=== PATIENT | female | born 1935 | race Caucasian/White ===

== ENCOUNTER 2017-11-19 17:10 | Inpatient (IN) | payer OTHER, MEDICAID ==
[~2017-11-19] VITALS: Ht 152.4 cm; Wt 61.0 kg
[2017-11-19 18:07] LABS: BASOPHIL % 0.8 % (0-2); PLATELET COUNT 281 x10^3mcL (130-400); RED CELL DISTRIBUTION WIDTH 13.4 % (11.5-14.5)
[2017-11-19 18:25] LABS: CALCIUM 9.8 mg/dL (8.5-10.1); CARBON DIOXIDE 21.2 mmol/L (21-32); CHLORIDE SERUM 107 mmol/L (98-107); CREATININE SERUM 1.8 mg/dL (0.6-1.0); GLUCOSE SERUM 108 mg/dL (74-106); POTASSIUM SERUM 3.6 mmol/L (3.5-5.1); SODIUM SERUM 142 mmol/L (136-145)
[2017-11-19 18:26] LABS: microscopic required? YES; urine erythrocyte 1+ (NEGATIVE)
[2017-11-19 18:38] LABS: ALKALINE PHOSPHATASE 50 U/L (46-116); ALT/SGPT 13 U/L (14-59); AST/SGOT 13 U/L (15-37); BILIRUBIN TOTAL 0.31 mg/dL (0.20-1.00); T4(THYROXINE) 7.2 ug/dL (4.7-13.3); TOTAL PROTEIN, SERUM 7.1 g/dL (6.4-8.2)
[2017-11-19 18:39] LABS: ALBUMIN 3.3 g/dL (3.4-5.0)
[2017-11-19 21:35] VITALS: BP 138/54
[2017-11-19 21:39] LABS: CHOLESTEROL/HDL RATIO 3.1; MAGNESIUM 1.5 mg/dL (1.8-2.4); PHOSPHOROUS 4.6 mg/dL (2.5-4.9)
[2017-11-20] VITALS (8 sets, daily range): BP systolic 91–142; BP diastolic 35–72
[2017-11-20] MEDS ORDERED: GABAPENTIN100 M2 PO (02:35)
[2017-11-20] MEDS ORDERED: LISINOPRIL10 MG PO (02:36)
[2017-11-20] MEDS ORDERED: HYDROCHLOROTHIA25 MG PO (02:36)
[2017-11-20] MEDS ORDERED: HCTZ/LISINOPRIL1 TA2 PO (02:36)
[2017-11-20] MEDS ORDERED: ALENDRONATE SOD70 M2 PO (02:39)
[2017-11-20] MEDS ORDERED: HYDROXYCHLOROQ200 MG PO (02:39)
[2017-11-20 06:02] LABS: PLATELET COUNT 248 x10^3mcL (130-400); RED CELL DISTRIBUTION WIDTH 13.8 % (11.5-14.5)
[2017-11-20 06:10] LABS: CALCIUM 8.7 mg/dL (8.5-10.1); CARBON DIOXIDE 19.6 mmol/L (21-32); CHLORIDE SERUM 111 mmol/L (98-107); CREATININE SERUM 1.6 mg/dL (0.6-1.0); GLUCOSE SERUM 97 mg/dL (74-106); MAGNESIUM 2.5 mg/dL (1.8-2.4); POTASSIUM SERUM 4.2 mmol/L (3.5-5.1); SODIUM SERUM 143 mmol/L (136-145)
[2017-11-20 09:06] LABS: ATYPICAL LYMPH 3 %; BAND NEUTROPHIL 11 % (0-10); BASOPHIL 0 % (0-2); MONOCYTE 3 % (0-7); PLATELET MORPHOLOGY PLATELETS NORMAL; SEGMENTED NEUTROPHILS 81 % (37-75); rbc morphology (normal/abnorm) NORMAL (NORMAL)
[2017-11-21 05:33] VITALS: BP 107/40
[2017-11-21 07:21] LABS: CALCIUM 8.4 mg/dL (8.5-10.1); CARBON DIOXIDE 20.5 mmol/L (21-32); CHLORIDE SERUM 112 mmol/L (98-107); CREATININE SERUM 1.3 mg/dL (0.6-1.0); GLUCOSE SERUM 91 mg/dL (74-106); PHOSPHOROUS 2.9 mg/dL (2.5-4.9); POTASSIUM SERUM 3.9 mmol/L (3.5-5.1); SODIUM SERUM 144 mmol/L (136-145)
[2017-11-21 07:31] LABS: BASOPHIL % 0.4 % (0-2); PLATELET COUNT 223 x10^3mcL (130-400); RED CELL DISTRIBUTION WIDTH 14.2 % (11.5-14.5)
[2017-11-21 09:37] VITALS: BP 93/31
[2017-11-21 17:42] VITALS: BP 134/60
[2017-11-21 23:28] VITALS: BP 123/51
[2017-11-22 05:10] VITALS: BP 106/42
[2017-11-22 06:36] LABS: CALCIUM 8.8 mg/dL (8.5-10.1); CARBON DIOXIDE 22.2 mmol/L (21-32); CHLORIDE SERUM 111 mmol/L (98-107); GLUCOSE SERUM 96 mg/dL (74-106); MAGNESIUM 1.7 mg/dL (1.8-2.4); PHOSPHOROUS 2.6 mg/dL (2.5-4.9); POTASSIUM SERUM 3.7 mmol/L (3.5-5.1); SODIUM SERUM 142 mmol/L (136-145)
[2017-11-22 07:24] LABS: BASOPHIL % 0.4 % (0-2); PLATELET COUNT 227 x10^3mcL (130-400)
[2017-11-22] MEDS ORDERED: LEVOFLOXACIN750 M1 PO (11:15)
[2017-11-22] MEDS ORDERED: ACIDOPHILUS LA1 EACH PO (11:17)
[2017-11-22 12:12] VITALS: BP 106/42
== END 2017-11-22 14:21 | disposition home or self-care (01) | DRG 640 ==
LOC: ED 17:10 → MU 20:16 → DU 20:16 → MU 11-20 18:13
PROVIDERS: Emergency Medicine; Family Medicine
DX: E86.0 Dehydration (principal); N17.0 Acute kidney failure with tubular necrosis; R78.81 Bacteremia; N39.0 Urinary tract infection, site not specified; E44.1 Mild protein-calorie malnutrition; B96.20 Unspecified Escherichia coli [E. coli] as the cause of diseases classified elsewhere; R31.9 Hematuria, unspecified; E83.42 Hypomagnesemia; M06.9 Rheumatoid arthritis, unspecified; I10 Essential (primary) hypertension; E78.5 Hyperlipidemia, unspecified; D64.9 Anemia, unspecified; Z68.26 Body mass index [BMI] 26.0-26.9, adult
CPT/HCPCS: 83880; 87804; 97110-GP; 97116-GP; 97530-GP; J1956; J3475; J7030; Q0092